=== PATIENT | female | born 1970 | race Two or more races ===

== ENCOUNTER 2020-03-16 05:30 | Day surgery (SDC) | payer OTHER | END 2020-03-16 12:45 | disposition home or self-care (01) | LOC: CIR.AMB 05:30 | PROVIDERS: ATTEND Orthopaedic Surgery Sports Medicine | DX: M23.321 Other meniscus derangements, posterior horn of medial meniscus, right knee (principal); M22.42 Chondromalacia patellae, left knee; M67.52 Plica syndrome, left knee; Z20.828 Contact with and (suspected) exposure to other viral communicable diseases ==